=== PATIENT | male | born 1980 | race Caucasian/White ===

== ENCOUNTER 2017-12-31 17:00 | Emergency (ER) | payer SELFPAY ==
[2017-12-31 17:25] VITALS: BP 132/85; TEMP 97.8; O2SAT 98
--- NOTE | 2017-12-31 17:28 | ED.PDOC ---
History of Present Illness - General Chief Complaint: Upper Extremity Injury Stated Complaint: LEFT MIDDLE FINGER INJURY Time Seen by Provider: 12/31/17 17:27 Source: patient Exam Limitations: no limitations - History of Present Illness Initial Comments: Patient presents with left middle finger pain after smashing it between two hard objects earlier today. He has broken it before and had it "pinned" Allergies/Adverse Reactions: Allergies Banana Allergy (Verified 12/31/17 17:19) Other hard to breathe, causes pain in chest Codeine Allergy (Verified 12/31/17 17:19) Other hard to breathe, causes pain in chest Past Medical History (General) - Patient Medical History Hx Stroke: No Hx Asthma: No Hx Congestive Heart Failure: No Hx Hypertension: No Hx Diabetes: No Hx Cancer: No Hx MRSA: No Surgical History: appendectomy, cholecystectomy - Vaccination History Hx Tetanus, Diphtheria Vaccination: Yes Hx Influenza Vaccination: No Hx Pneumococcal Vaccination: No - Social History Hx Tobacco Use: Yes Hx Chewing Tobacco Use: No Hx Alcohol Use: No Hx Substance Use: No Hx Substance Use Treatment: No Hx Depression: No - Female History Patient : No Family Medical History - Family History Father Family History: No Known Living Status: Still Living Physical Exam - Physical Exam General Appearance: Alert Respiratory: lungs clear, normal breath sounds Cardiovascular/Chest: normal peripheral pulses, regular rate, rhythm, no edema Gastrointestinal/Abdominal: normal bowel sounds, non tender, soft Extremity: other - Left third finger is TTP at the proximal phalange. He has slight movement that he says is unchanged since his surger 2 months ago. He has decreased sensation of the left third finger that he says is unchanged since the surgery two months ago. [facility] refill is less than two seconds throughout the entire left 3rd digit. The digit is chronically in a partly flexed position Progress - Progress Progress: 12/31/17 18:28 forearm, hand, finger splint applied to the patient's preferred comfort. Thumb was left free to move. Patient instructed to follow up with Dr. Villagran in three days. E.R. warnings given. Care instructions given. Questions were elicited and answered. The patient voiced understanding and agreement with the plan. Departure - Departure Clinical Impression: Fracture of finger of left hand Disposition: Discharge to Home or Self Care Condition: Good Departure Forms: ED Discharge - Pt. Copy, Patient Portal Self Enrollment Instructions: DI for Finger Fracture Diet: resume usual diet Activity: other - Rest the middle finger of the left hand. See Dr. Villagran in three days for further care. Return to the E.R. immediately if you lose all feeling in the finger or if it becomes pale or blue. Referrals: Femi Bach MD [Primary Care Provider] - 1-2 Weeks
--- NOTE | 2017-12-31 17:41 | RAD ---
PROCEDURE: Fingers,Left CLINICAL HISTORY: pain after trauma INDICATION: Same as above COMPARISON: None . TECHNIQUE: Three Views of the third digit of the left hand were done. FINDINGS: There is a nondisplaced spiral fracture extending from the mid to the distal diaphysis of the proximal phalanx of the third digit. The fracture line extends to the level of the PIP joint of the third digit The joint spaces are well-maintained. The soft tissues are radiographically unremarkable. There is no visualization of any radiopaque foreign bodies in the evaluated soft tissues. IMPRESSION: There is a nondisplaced spiral fracture extending from the mid to the distal diaphysis of the proximal phalanx of the third digit. Electronically signed by: Dae Petty MD 12/31/2017 5:39 PM [facility] Workstation: [id number]
== END 2017-12-31 18:43 | disposition home or self-care (01) ==
LOC: ER 17:00
DX: S62.643A Nondisplaced fracture of proximal phalanx of left middle finger, initial encounter for closed fracture (principal); W23.0XXA Caught, crushed, jammed, or pinched between moving objects, initial encounter; Z88.5 Allergy status to narcotic agent; Z87.891 Personal history of nicotine dependence; Z87.81 Personal history of (healed) traumatic fracture; Y92.69 Other specified industrial and construction area as the place of occurrence of the external cause; Y99.0 Civilian activity done for income or pay

== ENCOUNTER 2019-02-07 05:08 | Emergency (ER) | payer SELFPAY ==
--- NOTE | 2019-02-07 05:27 | ED.PDOC ---
History of Present Illness - General Chief Complaint: General Stated Complaint: "pressure in private area" Time Seen by Provider: 02/07/19 05:13 - History of Present Illness Initial Comments: Patient presents for evaluation of right testicular pain after having sex this morning. Pain is localized to the right testicle and feels like something is pulling it up. Denies previous testicular issues. No fevers or discharge. States that he has not had any recent trauma. Denies any other complaints except for nausea. Allergies/Adverse Reactions: Allergies Banana Allergy (Verified 02/07/19 05:24) Other hard to breathe, causes pain in chest Codeine Allergy (Verified 02/07/19 05:24) Other hard to breathe, causes pain in chest Review of Systems - Review of Systems Constitutional: Denies: chills, fever EENTM: Denies: nose congestion Respiratory: Denies: short of breath Cardiology: Denies: chest pain Gastrointestinal/Abdominal: States: nausea Genitourinary: States: pain Musculoskeletal: Denies: joint pain Neurological: Denies: weakness Past Medical History (General) - Patient Medical History Hx Stroke: No Hx Asthma: No Hx Cardiac Disorders: No Hx Congestive Heart Failure: No Hx Hypertension: No Hx Diabetes: No Hx Cancer: No Hx MRSA: No Surgical History: appendectomy, colectomy - Vaccination History Hx Tetanus, Diphtheria Vaccination: Yes Hx Influenza Vaccination: No Hx Pneumococcal Vaccination: No - Social History Hx Tobacco Use: Yes Hx Chewing Tobacco Use: No Hx Alcohol Use: No Hx Substance Use: No Hx Substance Use Treatment: No Hx Depression: No - Activities of Daily Living Hospice Agency (if applicable):: None - Female History Patient is a Female of Child Bearing Age (10 -59 yrs old): No Patient : No - Triage Comment ED Triage Comment: pt voices that he and his significant other were moving furniture around and he strained and now feels that he has pressure in private area. Family Medical History - Family History Father Family History: No Known Living Status: Still Living Physical Exam - Physical Exam General Appearance: Alert, Obvious distress Respiratory: lungs clear, normal breath sounds, no respiratory distress, no accessory muscle use Cardiovascular/Chest: normal peripheral pulses, no edema, no gallop, no JVD, tachycardia Gastrointestinal/Abdominal: non tender, soft, other - Right testicular tenderness without cremasteric reflex. Oblique lie to the right testicle. Skin Exam: normal color Progress - Progress Progress: 02/07/19 05:42 Patient presents for evaluation of right testicular pain. No cremasteric reflex and abnormal position of testicle. No urology or ultrasound present. [facility] contacted for ER to ER transfer. IV and lab work obtained. Symptoms started around 0415 today. At 0530, bedside maneuver performed to attempt to detorse the testicle as there is a delay in care due to transfer. Following maneuver, patient immediately felt better with scientologist of lie of testicle. He has no more "pulling sensation" to the testicle. Pending transfer. Symptoms suggestive and consistent with testicular torsion. Departure - Departure Clinical Impression: Testicular torsion Disposition: Transfer to Hospital Condition: Fair Departure Forms: ED Discharge - Pt. Copy, Patient Portal Self Enrollment Referrals: Femi Bach MD [Primary Care Provider] - 1-2 Weeks
[2019-02-07 05:32] VITALS: TEMP 97.3; O2SAT 99
[2019-02-07] MEDS: fentaNYL CITRATE INJ 50 MCG/ML AMP IV ONE (05:42)
[2019-02-07] MEDS: ONDANSETRON INJ 4 MG/2 ML VIAL IV ONE (05:43)
[2019-02-07 06:03] VITALS: BP 141/100
== END 2019-02-07 06:03 | disposition short-term general hospital (02) ==
LOC: ER 05:08
DX: N44.00 Torsion of testis, unspecified (principal); R11.0 Nausea; Z90.49 Acquired absence of other specified parts of digestive tract; Z87.891 Personal history of nicotine dependence; Z88.5 Allergy status to narcotic agent